=== PATIENT | female | born 1975 | race Hispanic/Latino ===

== ENCOUNTER 2020-11-19 10:02 | Emergency (ER) | payer SELFPAY ==
[~2020-11-19] VITALS: Ht 144.8 cm; Wt 83.9 kg
[~2020-11-19 10:02] MED LIST: BUSPIRONE HCL30 MG PO; PRENATE MINI S1 EACH PO; SEROQUEL25 MG PO; TYLENOL # 31 EA PO
[2020-11-19] MEDS ORDERED: DONNATAL/LIDOCAINE/MAALOX 30 ML SUSP PO STA (10:52)
[2020-11-19] MEDS ORDERED: MAGNESIUM/ALUMINUM/SIMETHICONE 30 ML UDC ONE (11:17)
[2020-11-19] MEDS ORDERED: BELLADONNA ALK/PHENOBARBITAL 5 ML UDC ONE (11:17)
[2020-11-19] MEDS ORDERED: LIDOCAINE VISC 2% SOLN 15 ML UDC ONE (11:17)
[2020-11-19 11:40] LABS: BASOPHILS % 0.4 % (0.0-1.0); EOSINOPHILS # (AUTO) 0.4 (0.0-0.4); EOSINOPHILS % 3.7 % (0.0-6.0); HEMATOCRIT 37.7 % (34.2-44.1); LYMPHOCYTES # (AUTO) 2.1 (1.0-3.2); LYMPHOCYTES % 21.2 % (18.0-39.1); MEAN CORPUSCULAR HEMOGLOBIN 27.9 pg (28-32); MEAN CORPUSCULAR HGB CONC 31.8 g/dL (31-35); MEAN CORPUSCULAR VOLUME 87.7 fL (81-99); MONOCYTES # (AUTO) 0.8 (0.2-0.8); MONOCYTES % 7.8 % (4.4-11.3); NEUTROPHILS # (AUTO) 6.6 (2.1-6.9); NEUTROPHILS % 66.5 % (38.7-80.0); PLATELET COUNT 276 x10e3/uL (140-360); RED CELL DISTRIBUTION WIDTH 13.1 % (11.7-14.4)
[2020-11-19] MEDS ORDERED: AMLODIPINE BESYLATE 5 MG TAB PO ONE (11:45)
[2020-11-19 12:08] LABS: ALANINE AMINOTRANSFERASE 21 IU/L (0-55); ALBUMIN 3.8 g/dL (3.5-5.0); ALBUMIN/GLOBULIN RATIO 1.3 (0.8-2.0); ALKALINE PHOSPHATASE 51 IU/L (40-150); BLOOD UREA NITROGEN 17 mg/dL (7-26); BUN/CREATININE RATIO 23 (6-25); CALCIUM 8.9 mg/dL (8.4-10.2); CARBON DIOXIDE 23 mmol/L (22-29); CHLORIDE 106 mmol/L (98-107); CREATININE, SERUM 0.75 mg/dL (0.57-1.11); EST GLOMERULAR FILTRATION RATE > 60 ML/MIN (60-); GLUCOSE 103 mg/dL (74-118); SODIUM 140 mmol/L (136-145)
[2020-11-19 12:10] LABS: LIPASE 37 U/L (8-78)
[2020-11-19] MEDS ORDERED: AMLODIPINE BESYL5 MG PO (13:12)
== END 2020-11-19 14:45 | disposition home or self-care (01) ==
LOC: ER 10:30
DX: R07.9 Chest pain, unspecified (principal); I10 Essential (primary) hypertension; F31.9 Bipolar disorder, unspecified
CPT/HCPCS: 36415; 71045; 80053; 83690; 84484; 84702; 85025; 93005; 99284

== ENCOUNTER 2024-10-06 09:05 | Emergency (ER) | payer SELFPAY ==
[~2024-10-06] VITALS: Ht 144.8 cm; Wt 83.9 kg
[~2024-10-06 09:05] MED LIST changes: +AMLODIPINE BESYL5 MG PO; +MOTRIN800 MG PO; +ULTRAM 50MG50 MG PO
[2024-10-06 09:14] VITALS: PULSE 93; RESP 17; TEMP 98.3; O2SAT 100
== END 2024-10-06 10:02 | disposition home or self-care (01) ==
LOC: ER 09:28
DX: S43.084A Other dislocation of right shoulder joint, initial encounter (principal); X58.XXXA Exposure to other specified factors, initial encounter; Y92.89 Other specified places as the place of occurrence of the external cause; I10 Essential (primary) hypertension; F31.9 Bipolar disorder, unspecified
CPT/HCPCS: 99283